=== PATIENT | female | born 1945 | race Caucasian/White ===

== ENCOUNTER 2016-05-24 15:06 | Observation (INO) | payer OTHER ==
[2016-05-24] MEDS: ERTAPENEM 1 GM in NS 100 ML IV ONE ×2 (15:15→16:29)
--- NOTE | 2016-05-24 15:47 | EDPHY ---
H & P Time Seen by Provider: 05/24/16 15:41 HPI/ROS: CHIEF COMPLAINT: Gallstone/cholecystitis. HISTORY OF PRESENT ILLNESS: This is a 71-year-old female who was seen yesterday in an outside hospital (in [facility]) for chest/abdominal pain. She had an abdominal ultrasound this morning 05/24 that showed a gallstone in the neck of the gallbladder, a thickened gallbladder wall, and an enlarged pancreatic duct. She was discharged this morning and directed to the [facility] ER for consultation by Dr. Alyssa Cohen, surgery. The severe RUQ pain began 2 days ago and has been present since then. It is worsened with eating. She admits nausea and mild fever but no vomiting. She denies other complaints at this time and her condition does not appear to be worsening since this morning. REVIEW OF SYSTEMS: A complete 10-point review of systems was performed and is negative except for those items mentioned in the HPI. Past Medical/Surgical History: Hypothyroidism, arthritis. Social History: , no recent alcohol Smoking Status: Former smoker Physical Exam: General Appearance: Alert, non-toxic appearing Eyes: Pupils equal and round, no conjunctival pallor or injection ENT, Mouth: Mucous membranes moist Neck: Normal inspection Respiratory: Lungs are clear to auscultation Cardiovascular: Regular rate and rhythm Gastrointestinal: Abdomen is soft, RUQ tenderness, no peritoneal signs Neurological: A&O, nonfocal, normal gait Skin: Warm and dry, no rash Extremities: Nontender, no pedal edema Psychiatric: Mood and affect normal Constitutional: Initial Vital Signs Temperature (C) 37.3 C 05/24/16 15:10 Heart Rate 86 05/24/16 15:10 Respiratory Rate 18 05/24/16 15:10 Blood Pressure 122/51 H 05/24/16 15:10 O2 Sat (%) 86 L 05/24/16 15:10 O2 Delivery Mode Room Air O2 (L/minute) 2 Allergies/Adverse Reactions: nickel Allergy (Intermediate, Verified 08/28/14 09:41) SWELLING, ITCHING Home Medications: Medication Instructions Recorded Atorvastatin Calcium [Lipitor 20 20 mg PO HS 08/24/14 mg (*)] Cholecalciferol Vit D3 [Vitamin D3 2,000 units PO DAILY 08/24/14 (*)] [place]-3 Fatty Acids [Fish Oil 1000 1,000 mg PO DAILY 04/17/15 mg (*)] Acetaminophen [Tylenol 325mg (*)] 325 - 650 mg PO Q6 PRN #60 tab 09/13/14 Aspirin EC [Aspirin EC 81 mg (*)] 81 mg PO DAILY 05/24/16 Docusate Sodium [Colace 100 MG (*)] 100 mg PO BID #30 cap 05/24/16 Hydrocodone/APAP 5/325 [Sarah 2 tab PO Q4HRS PRN #30 tab 05/24/16 5/325 (*)] Ibuprofen [Motrin (*)] 400 mg PO Q6HRS #30 tab 05/24/16 Medical Decision Making - Diagnostics EKG Interpretation: EKG interpreted by me reveals normal sinus rhythm, normal axis, normal intervals , ST and T segments normal. Interpretation: normal EKG ED Course/Re-evaluation: 1606: This pt presents with acute cholecystitis with an impacted gallstone in the neck of the GB. Invanz 1 gm IV, Morphine and Zofran IV given. Nu Mine better after IV meds. I consulted with Dr. Cohen, surgery. She is aware of the patient and will consult with her in the ER. The pt was taken directly to the OR. Differential Diagnosis: includes though not limited to appy, pancreatitis, SBO, diverticulitis. - Data Points Laboratory Results: Laboratory Results 05/24/16 15:43 05/24/16 15:43 Medications Given: Discontinued Medications Acetaminophen/Hydrocodone Bitart (Sarah 5/325) 2 tab PO Q4HRS PRN PRN Reason: Pain, Moderate Able to Take PO Stop: 06/03/16 18:22 Last Admin: 05/25/16 08:49 Dose: 2 tab Atorvastatin Calcium (Lipitor) 20 mg PO HS VIKKI Stop: 11/20/16 20:59 Last Admin: 05/24/16 23:05 Dose: 20 mg Cholecalciferol (Vitamin D) 2,000 units PO DAILY VIKKI Stop: 11/21/16 08:59 Last Admin: 05/25/16 09:19 Dose: 2,000 units Docusate Sodium (Colace) 100 mg PO BID VIKKI Stop: 11/20/16 20:59 Last Admin: 05/25/16 09:19 Dose: 100 mg Enoxaparin Sodium (Lovenox) 40 mg SC DAILY VIKKI Stop: 11/21/16 08:59 Last Admin: 05/25/16 09:19 Dose: 40 mg Ertapenem 1 gm/ Sodium (Chloride) 100 mls @ 200 mls/hr IV EDNOW ONE PRN Reason: Protocol Stop: 05/24/16 16:36 Last Admin: 05/24/16 15:15 Dose: 100 mls Lactated Ringer's (Lr) 1,000 mls @ 100 mls/hr IV CONT VIKKI Stop: 11/20/16 18:29 Last Admin: 05/25/16 07:15 Dose: 1,000 mls Ibuprofen (Motrin) 400 mg PO Q6HRS VIKKI Stop: 11/21/16 00:00 Last Admin: 05/25/16 05:41 Dose: 400 mg Departure - Departure Disposition: [facility] Inpatient Acute Clinical Impression: Cholecystitis Cholelithiasis Qualifiers: Qualifier Code: (K80.81) Other cholelithiasis with obstruction Condition: Fair Report Scribed for: Luz Marina Jacob Report Scribed by: Mumtza Roth Date of Report: 05/24/16 Time of Report: 15:44 Physician Review and Approval Statement: 05/24/16 15:44 Portions of this note were transcribed by a medical staff physician. I personally performed a history, physical exam, medical decision making, and confirmed accuracy of information the transcribed note.
[2016-05-24 16:06] LABS: % IMMATURE GRANULYOCYTES 0.6 % (0.0-1.1); ABSOLUTE IMMATURE GRANULOCYTES 0.08 10^3/uL (0.00-0.10); ADD DIFF? NO; ADD MORPH? NO; ADD SCAN? NO; ATYPICAL LYMPHOCYTE FLAG 0 (0-99); FRAGMENT RBC FLAG 0 (0-99); HEMOGLOBIN 12.6 g/dL (12.6-16.3); LEFT SHIFT FLG 0 (0-99); LIPEMIA HEMOLYSIS FLAG 80 (0-99); MEAN CELL HEMOGLOBIN 31.1 pg (27.9-34.1); MEAN CELL HEMOGLOBIN CONCENTR. 33.2 g/dL (32.4-36.7); MEAN CELL VOLUME 93.8 fL (81.5-99.8); MEAN PLATELET VOLUME 10.2 fL (8.7-11.7); PLATELET CLUMPS FLAG 40 (0-99); PLATELET COUNT 182 10^3/uL (150-400); RED BLOOD CELL COUNT 4.05 10^6/uL (4.18-5.33); RED CELL DISTRIBUTION WIDTH 13.6 % (11.5-15.2)
[2016-05-24 16:12] LABS: ALANINE AMINOTRANSFERASE 29 IU/L (9-52); ALBUMIN 3.9 g/dL (3.5-5.0); ALKALINE PHOSPHATASE 85 IU/L (38-126); ANION GAP 13 mEq/L (8-16); ASPARTATE AMINOTRANSFERASE 31 IU/L (14-46); BILIRUBIN,TOTAL 2.3 mg/dL (0.1-1.4); BILIRUBIN-CONJUGATED 0.3 mg/dL (0.0-0.5); CALCIUM 8.9 mg/dL (8.5-10.4); CARBON DIOXIDE 24 mEq/l (22-31); CHLORIDE 103 mEq/L (97-110); CREATININE 0.7 mg/dL (0.6-1.0); GLOMERULAR FILTRATION RATE > 60; GLUCOSE 128 mg/dL (70-100); POTASSIUM 3.7 mEq/L (3.5-5.2); SODIUM 140 mEq/L (134-144)
--- NOTE | 2016-05-24 17:00 | GHP ---
[f rep st] HISTORY AND PHYSICAL DATE OF ADMISSION: 05/24/2016 HISTORY OF PRESENT ILLNESS: The patient is a 71-year-old woman with 3 days of abdominal pain mainly in the upper quadrants and radiating to the back, accompanied by nausea. She was found on presentati on to hospital in [place] to [facility] to have an elevated white blood cell count and a CT scan which showed evidence of cholecystitis and a stone stuck in the neck of the gallbladder. She was discharged from [place] today and her step-son drove her to [facility]. On presentation to our emerge ncy department, she was noted to have a white blood cell count of 14, a conjugated bilirubin of 0.3, and normal alkaline phosphatase. PAST MEDICAL HISTORY: Hyperlipidemia, arthritis, hypothyroidism. PAST SURGICAL HISTORY: She has had a hysterectomy, tonsillectomy, and right hip replacement. MEDICATIONS: She takes Synthroid, vitamin D, Lipitor, fish oil, aspirin, and Celebrex. ALLERGIES: She is allergic wan with a contact allergy. FAMILY HISTORY: Her mother and maternal aunt required cholecystectomies. SOCIAL HISTORY: She is . She is a nonsmoker. REVIEW OF SYSTEMS: She denied chest pain, shortness of breath, blood in her stool, vomiting. She co mplained of fevers, upper abdominal pain radiating to the back, and bloating. She denied jaundice. PHYSICAL EXAMINATION: VITAL SIGNS: Temperature is 37.3, pulse 86, blood pressure 122/51, respirator y rate is 18. She is satting 95% on 2 L. GENERAL: She is alert, nonjaundiced, nontoxic-appearing. LUNGS: Clear to auscultation bilaterally. HEART: Regular rate and rhythm. ABDOMEN: Exquisitely tender in the right upper quadrant with a positive Major sign. LABORATORY DATA: Her white count again is 14, hematocrit 38, platelets 182. Conjugated bilirubin an d alkaline phosphatase are normal. ASSESSMENT AND PLAN: Cholelithiasis with acute cholecystitis. PLAN: She will be given Invanz 1 g intravenously in the emergency department and will go to surgery for laparoscopic cholecystectomy. /[id number]/MODL
[2016-05-24] MEDS ORDERED: BUPIVACAINE/EPI 0.5% 30 ML SDV ONE (17:30)
[2016-05-24] MEDS ORDERED: MIDAZOLAM 2 MG/2 ML VIAL ONE (18:12)
[2016-05-24] MEDS ORDERED: ONDANSETRON 4 MG/2 ML VIAL ONE (18:15)
[2016-05-24] MEDS ORDERED: KETOROLAC 30 MG/1 ML SDV ONE ×2 (18:15→19:14)
[2016-05-24] MEDS ORDERED: DEXAMETHASONE 4 MG/ML VIAL ONE (18:15)
[2016-05-24] MEDS ORDERED: ROCURONIUM 50 MG/5 ML VIAL ONE (18:15)
[2016-05-24] MEDS ORDERED: fentaNYL 100 MCG/2 ML INJ ONE ×2 (18:16→19:21)
[2016-05-24] MEDS ORDERED: PROPOFOL 200 MG/20 ML VIAL ONE (18:16)
[2016-05-24] MEDS ORDERED: LIDOCAINE 2% 5 ML SDV ONE (18:16)
--- NOTE | 2016-05-24 18:21 | CPEKG ---
Heart Rate: 74 RR Interval: 811 P-R Interval: 184 QRSD Interval: 94 QT Interval: 416 QTC Interval: 462 P [place]: 69 QRS [place]: 15 T Wave [place]: -4 EKG Severity - NORMAL ECG - EKG Impression: SINUS RHYTHM Electronically Signed By: Luz Marina Jacob 24-May-2016 23:34:25
[2016-05-24] MEDS ORDERED: HYDROCODONE/APAP 5/325 TAB PO PRN (18:23)
[2016-05-24] MEDS ORDERED: ONDANSETRON 4 MG/2 ML VIAL IVP PRN (18:24)
[2016-05-24] MEDS ORDERED: HYDROmorphONE/DILAUDID 1 MG/ML SYR IVP PRN (18:24)
[2016-05-24] MEDS ORDERED: epHEDrine SULFATE 10 MG/ML SYR ONE (18:30)
[2016-05-24] MEDS ORDERED: AVITENE POWDER 1 GM JAR TP ONE (19:11)
[2016-05-24] MEDS ORDERED: SUGAMMADEX SODIUM 200 MG/2 ML VIAL IVP ONE (19:15)
--- NOTE | 2016-05-24 20:07 | GOP ---
[f rep st] OPERATIVE REPORT DATE OF OPERATION: 05/24/2016 SURGEON: Alyssa Cohen MD PREOPERATIVE DIAGNOSIS: Cholelithiasis with acute cholecystitis. POSTOPERATIVE DIAGNOSIS: Cholelithiasis with acute cholecystitis. PROCEDURE PERFORMED: Laparoscopic cholecystectomy. FINDINGS: Severe inflammation of the gallbladder with a gallstone impacted in the neck of the gallbl adder. SPECIMENS: Gallbladder. ESTIMATED BLOOD LOSS: 50 mL. INDICATIONS: The patient has had upper abdominal pain for the past 3 days. She was found on present ation to a hospital in [place] to have an elevated white blood cell count and a CT scan which showed ev idence of cholecystitis with an impacted stone in the neck of the gallbladder. Her stepson drove her to [place] today where she opted for cholecystectomy. DESCRIPTION OF PROCEDURE: After informed consent was obtained and preoperative antibiotics were admi nistered, the patient was taken to the operating room, placed in a supine position. SCDs were placed to bilateral lower extremities, general anesthesia was administered, and she was prepped and draped in a sterile fashion. After an appropriate surgical pause, local anesthetic was injected just superi or to the umbilicus, and an incision was made using a #15 blade. A Veress needle was inserted into t he peritoneal cavity. After noting low entry pressures, the peritoneal cavity was insufflated to 15 mmHg and a 5 mm trocar placed. The laparoscope was inserted. A 12 mm subxiphoid port and two 5 mm r ight subcostal ports were placed under direct visualization of the laparoscope. The gallbladder was retracted cephalad. Adhesions to the omentum and duodenum were taken down using L-hook Bovie electro cautery. The gallbladder was then retracted laterally as well to reveal Calot triangle and its struc tures. The cystic artery was clipped proximally and then L-hook Bovie electrocautery was used to tra nsect it distally. The cystic duct was clipped 3 times and transected between clips using the scisso rs. Before clipping and transecting these structures, Calot triangle was fully dissected. The cysti c duct and artery were noted to be going into the gallbladder with no intervening structures. The ga llbladder was then dissected from the gallbladder fossa of the liver using L-hook Bovie electrocauter y. It was removed using an EndoCatch device and sent to Pathology. The subxiphoid incision was exte nded to allow deliverance of the large gallbladder with a very large stone in the neck. Afterward, h emostasis of the gallbladder fossa was achieved using L-hook Bovie electrocautery. The area was irri gated, suctioned, noted to be hemostatic. Vadim was placed and the area was still noted to be hemos tatic. The abdomen was then desufflated, the ports removed, and the fascia at the subxiphoid incisio n closed using 0 Vicryl suture. The skin was closed at all sites using 4-0 Monocryl suture. Mastiso l and Steri-Strips were placed. The patient was awakened from general anesthesia, extubated, and veronica en to the postanesthesia recovery unit in stable condition. /[id number]/MODL
[2016-05-24 20:16] VITALS: RESP 16
[2016-05-24] MEDS: LR 1,000 ML IV SCH (20:32)
[2016-05-24] MEDS ORDERED: ATORVASTATIN CALCIUM 20 MG TAB PO SCH (21:00)
[2016-05-24] MEDS: DOCUSATE SODIUM 100 MG CAP PO SCH (23:05)
[2016-05-24] MEDS: IBUPROFEN 200 MG TAB PO SCH (23:05)
[2016-05-25 05:17] LABS: HEMATOCRIT 29.3 % (38.0-47.0); HEMOGLOBIN 9.6 g/dL (12.6-16.3); MEAN CELL HEMOGLOBIN 30.9 pg (27.9-34.1); MEAN CELL HEMOGLOBIN CONCENTR. 32.8 g/dL (32.4-36.7); MEAN CELL VOLUME 94.2 fL (81.5-99.8); RED BLOOD CELL COUNT 3.11 10^6/uL (4.18-5.33); RED CELL DISTRIBUTION WIDTH 13.8 % (11.5-15.2)
[2016-05-25 05:39] LABS: ALBUMIN 2.9 g/dL (3.5-5.0); BILIRUBIN,TOTAL 1.1 mg/dL (0.1-1.4); BILIRUBIN-CONJUGATED 0.3 mg/dL (0.0-0.5); BILIRUBIN-UNCONJUGATED 0.8 mg/dL (0.0-1.1); TOTAL PROTEIN 5.3 g/dL (6.3-8.2)
[2016-05-25] MEDS: IBUPROFEN 200 MG TAB PO SCH (05:41)
[2016-05-25] MEDS: LR 1,000 ML IV SCH (07:15)
[2016-05-25 08:39] VITALS: BP 118/58; PULSE 56; TEMP 97.8; O2SAT 95
[2016-05-25] MEDS ORDERED: CHOLECALCIFEROL VIT D3 2,000 UNITS TAB/CAP PO SCH (09:00)
[2016-05-25] MEDS ORDERED: ENOXAPARIN 40 MG/0.4 ML SYR SC SCH (09:00)
--- NOTE | 2016-05-25 09:03 | GDS ---
[f rep st] DISCHARGE SUMMARY PREOPERATIVE DIAGNOSIS: Cholelithiasis with acute cholecystitis. POSTOPERATIVE DIAGNOSIS: Cholelithiasis with acute cholecystitis. PROCEDURE: Laparoscopic cholecystectomy. HISTORY OF PRESENT ILLNESS AND HOSPITAL COURSE: The patient is a 71-year-old woman who has had upper abdominal pain for the past 3 days, accompanied by bloating. She was found at a hospital in [place], where she was visiting her son, to have acute cholecystitis. She was treated with pain medication an d antibiotics. Her son-in-law then drove her back to [facility] for further care. O n presentation to the emergency department, she was noted to have a normal conjugated bilirubin and a lkaline phosphatase. Ultrasound report from [place] showed a large gallstone stuck within the neck of the gallbladder and gallbladder wall thickening consistent with acute cholecystitis. She opted for l aparoscopic cholecystectomy. Intraoperatively, she was found to have a very inflamed gallbladder with a large gallstone impacted w ithin the neck. She underwent laparoscopic cholecystectomy. Postoperatively, she was started on a diet and analgesia. Currently, her pain has improved and seems to be controlled with pain medication. If she tolerates a diet this morning, she will be discharged home with instructions to follow up with Dr. Cohen in 1-2 weeks. DISCHARGE MEDICATIONS: [place] 5/325 mg 1-2 tablets q.4 hours p.r.n. pain, Colace 100 mg p.o. twice da jc, ibuprofen 400 mg 4 times daily. /[id number]/MODL
[2016-05-25] MEDS: DOCUSATE SODIUM 100 MG CAP PO SCH (09:19)
== END 2016-05-25 11:35 | disposition home or self-care (01) ==
LOC: F3N 20:10
PROVIDERS: ADMIT Surgery; ATTEND Surgery
PROC: 0FT44ZZ Resection of Gallbladder, Percutaneous Endoscopic Approach (ICD-10-PCS; principal; 2016-05-24 18:17)
DX: K80.01 Calculus of gallbladder with acute cholecystitis with obstruction (principal); E03.9 Hypothyroidism, unspecified; E78.5 Hyperlipidemia, unspecified
CPT/HCPCS: 47562; 88304; 93005; G0378; J1100; J1335; J1650; J1885; J2250; J2405; J2704; J3010; 96365

== ENCOUNTER → 2016-08-04 | Outpatient (CLI) | payer OTHER | LOC: FIMAGING 12:40 | PROVIDERS: ATTEND Internal Medicine | DX: R91.1 Solitary pulmonary nodule (principal) ==

== ENCOUNTER → 2017-03-09 | Outpatient (CLI) | payer OTHER | LOC: FIMAGING 11:34 | PROVIDERS: ATTEND Internal Medicine | DX: Z12.31 Encounter for screening mammogram for malignant neoplasm of breast (principal) | CPT/HCPCS: G0202 ==

== ENCOUNTER → 2017-04-27 | Outpatient (CLI) | payer OTHER | LOC: FIMAGING 15:16 | PROVIDERS: ATTEND Physician Assistant Medical | DX: M50.30 Other cervical disc degeneration, unspecified cervical region (principal); M12.88 Other specific arthropathies, not elsewhere classified, other specified site; M99.71 Connective tissue and disc stenosis of intervertebral foramina of cervical region ==

== ENCOUNTER → 2017-06-18 | Outpatient (CLI) | payer OTHER | LOC: FIMAGING 12:53 | PROVIDERS: ATTEND Internal Medicine | DX: R91.1 Solitary pulmonary nodule (principal); I77.810 Thoracic aortic ectasia ==

== ENCOUNTER 2018-02-16 13:36 | Emergency (ER) | payer OTHER ==
[2018-02-16] MEDS ORDERED: NS 1,000 ML IV ONE (14:07)
--- NOTE | 2018-02-16 14:07 | EDPHY ---
H & P Time Seen by Provider: 02/16/18 13:53 HPI/ROS: CHIEF COMPLAINT: Back and abdominal pain HISTORY OF PRESENT ILLNESS: Return from [place] last week on Wednesday. On Wednesday 4 days ago started having back pain which is also associated with abdominal pain and bloating. Worse with movement. Not associated with urinary symptoms vomiting or diarrhea or fever. She has felt bloated more constipated over the last 3 days. Symptoms definitely worse with walking. No injury or trauma. No weakness or numbness in feet or incontinence. REVIEW OF SYSTEMS: Eye: no change in vision ENT: no sore throat Cardiac: no chest pain or syncope Pulmonary: no cough or SOB Abdomen: HPI Musculoskeletal: HPI Skin: no rash Neuro: no headache Constitutional: no fever : no urinary symptoms A comprehensive 10 point review of systems is otherwise negative aside from elements mentioned in the history of present illness. PAST MEDICAL HISTORY: Includes hip replacement, atrial fibrillation, hypothyroid, hysterectomy, cholecystectomy. Social history: Recent travel to [place] General Appearance: Alert and conversant, cooperative. Eyes: No scleral icterus. ENT, Mouth: Normal mucous membranes. Respiratory: Normal respiratory effort, breath sounds equal, lungs are clear to auscultation. Cardiovascular: Regular rate and rhythm. Gastrointestinal: Right lower quadrant abdominal tenderness, no pulsatile mass. No rebound or guarding. No peritoneal signs. Neurological: Alert, face symmetric, normal motor and sensory in extremities. No clonus. Ambulatory. Skin: Warm and dry, no rashes. Musculoskeletal: No midline spinal or paraspinal tenderness. Psychiatric: Not agitated. Emergency Department course/MDM: Declined pain medication. Plan for CT scanning abdomen and pelvis to look at her lumbar spine as well as her appendix and right colon with abdominal tenderness. 1545: CT scan per Dr. Rhodes shows constipation with stool, multilevel spinal stenosis, otherwise negative. No evidence of appendicitis. Results discussed with the patient, symptomatic treatment for back pain, she has a known history of spinal stenosis. She does not have distal neurologic symptoms. Symptomatic treatment for constipation. Smoking Status: Former smoker Constitutional: Initial Vital Signs Temperature (C) 36.7 C 02/16/18 13:39 Heart Rate 74 02/16/18 13:39 Respiratory Rate 18 02/16/18 13:39 Blood Pressure 208/102 H 02/16/18 13:39 O2 Sat (%) 95 02/16/18 13:39 O2 Delivery Mode Room Air Allergies/Adverse Reactions: nickel Allergy (Intermediate, Verified 08/28/14 09:41) SWELLING, ITCHING Home Medications: Medication Instructions Recorded Atorvastatin Calcium [Lipitor 20 20 mg PO HS 08/24/14 mg (*)] Cholecalciferol Vit D3 [Vitamin D3 2,000 units PO DAILY 08/24/14 (*)] [place]-3 Fatty Acids [Fish Oil 1000 1,000 mg PO DAILY 08/24/14 mg (*)] Acetaminophen [Tylenol 325mg (*)] 325 - 650 mg PO Q6 PRN #60 tab 09/13/14 Aspirin EC [Aspirin EC 81 mg (*)] 81 mg PO DAILY 05/24/16 Docusate Sodium [Colace 100 MG (*)] 100 mg PO BID #30 cap 05/24/16 Hydrocodone/APAP 5/325 [[place] 2 tab PO Q4HRS PRN #30 tab 05/24/16 5/325 (*)] Ibuprofen [Motrin (*)] 400 mg PO Q6HRS #30 tab 05/24/16 Lidocaine [Lidoderm] 1 each TP AD PRN #7 adh..patch 02/16/18 Medical Decision Making - Diagnostics Imaging Results: Imaging Impressions Abdomen CT 02/16/18 14:38 Impression: 1. Multilevel moderate to severe central canal stenosis, secondary to degenerative disk disease and facet arthropathy at L2-L3, L3-L4 and L4-L5 levels. 2. Constipation without bowel obstruction or dilation. 3. Atherosclerotic aorta without aneurysm. 4. Sigmoid diverticulosis without diverticulitis, abscess or focal fluid collection. Findings and recommendations discussed with Emergency Department physician, Dr. Biju Gamino at 1545 hours on February 16, 2018. Final report concurs with initial preliminary interpretation. Imaging: Discussed imaging studies w/ call center dispatcher Radiologist Differential Diagnosis: Differential diagnosis considered for abdominal pain including but not limited to appendicitis, bowel obstruction, intestinal perforation, diverticulitis. - Data Points Laboratory Results: Laboratory Results 02/16/18 14:14 02/16/18 14:14 02/16/18 02/16/18 02/16/18 14:44 14:17 14:14 WBC RBC Hgb POC Hgb 12.6 gm/dL gm/dL (12.6-16.3) Hct POC Hct 37 % L % (38-47) MCV MCH MCHC RDW Plt Count MPV Neut % (Auto) Lymph % (Auto) [place] % (Auto) Eos % (Auto) Baso % (Auto) Nucleat RBC Rel Count Absolute Neuts (auto) Absolute Lymphs (auto) Absolute Monos (auto) Absolute Eos (auto) Absolute Basos (auto) Absolute Nucleated RBC Immature Gran % Immature Gran # POC Sodium 141 mEq/L mEq/L (135-145) Sodium 138 mEq/L mEq/L (135-145) POC Potassium 3.4 mEq/L mEq/L (3.3-5.0) Potassium 3.6 mEq/L mEq/L (3.3-5.0) POC Chloride 104 mEq/L mEq/L (97-110) Chloride 104 mEq/L mEq/L (97-110) Carbon Dioxide 27 mEq/l mEq/l (22-31) Anion Gap 7 mEq/L L mEq/L (8-16) POC BUN 10 mg/dL mg/dL (7-23) BUN 12 mg/dL mg/dL (7-23) Creatinine 0.7 mg/dL mg/dL (0.6-1.0) POC Creatinine 0.7 mg/dL mg/dL (0.6-1.0) Estimated GFR > 60 Glucose 92 mg/dL mg/dL (70-100) POC Glucose 92 mg/dL mg/dL (70-100) Calcium 9.5 mg/dL mg/dL (8.5-10.4) Urine Color YELLOW Urine Appearance CLEAR Urine pH 6.0 (5.0-7.5) Ur Specific [place] 1.008 (1.002-1.030) Urine Protein NEGATIVE (NEGATIVE) Urine Ketones TRACE H (NEGATIVE) Urine Blood NEGATIVE (NEGATIVE) Urine Nitrate NEGATIVE (NEGATIVE) Urine Bilirubin NEGATIVE (NEGATIVE) Urine Urobilinogen NEGATIVE EU EU (0.2-1.0) Ur Leukocyte Esterase NEGATIVE (NEGATIVE) Urine Glucose NEGATIVE (NEGATIVE) 02/16/18 14:14 WBC 7.49 10^3/uL 10^3/uL (3.80-9.50) RBC 4.02 10^6/uL L 10^6/uL (4.18-5.33) Hgb 12.5 g/dL L g/dL (12.6-16.3) POC Hgb Hct 36.8 % L % (38.0-47.0) POC Hct MCV 91.5 fL fL (81.5-99.8) MCH 31.1 pg pg (27.9-34.1) MCHC 34.0 g/dL g/dL (32.4-36.7) RDW 13.0 % % (11.5-15.2) Plt Count 160 10^3/uL 10^3/uL (150-400) MPV 10.1 fL fL (8.7-11.7) Neut % (Auto) 68.7 % % (39.3-74.2) Lymph % (Auto) 22.4 % % (15.0-45.0) [place] % (Auto) 6.3 % % (4.5-13.0) Eos % (Auto) 1.5 % % (0.6-7.6) Baso % (Auto) 0.8 % % (0.3-1.7) Nucleat RBC Rel Count 0.0 % % (0.0-0.2) Absolute Neuts (auto) 5.15 10^3/uL 10^3/uL (1.70-6.50) Absolute Lymphs (auto) 1.68 10^3/uL 10^3/uL (1.00-3.00) Absolute Monos (auto) 0.47 10^3/uL 10^3/uL (0.30-0.80) Absolute Eos (auto) 0.11 10^3/uL 10^3/uL (0.03-0.40) Absolute Basos (auto) 0.06 10^3/uL 10^3/uL (0.02-0.10) Absolute Nucleated RBC 0.00 10^3/uL 10^3/uL (0-0.01) Immature Gran % 0.3 % % (0.0-1.1) Immature Gran # 0.02 10^3/uL 10^3/uL (0.00-0.10) POC Sodium Sodium POC Potassium Potassium POC Chloride Chloride Carbon Dioxide Anion Gap POC BUN BUN Creatinine POC Creatinine Estimated GFR Glucose POC Glucose Calcium Urine Color Urine Appearance Urine pH Ur Specific [place] Urine Protein Urine Ketones Urine Blood Urine Nitrate Urine Bilirubin Urine Urobilinogen Ur Leukocyte Esterase Urine Glucose Medications Given: Discontinued Medications Sodium Chloride (Ns) 1,000 mls @ 0 mls/hr IV EDNOW ONE; Wide Open PRN Reason: Protocol Stop: 02/16/18 14:08 Last Admin: 02/16/18 14:16 Dose: 1,000 mls Point of Care Test Results: Chemistry 02/16/18 14:17 POC Sodium 141 mEq/L mEq/L (135-145) POC Potassium 3.4 mEq/L mEq/L (3.3-5.0) POC Chloride 104 mEq/L mEq/L (97-110) POC BUN 10 mg/dL mg/dL (7-23) POC Creatinine 0.7 mg/dL mg/dL (0.6-1.0) POC Glucose 92 mg/dL mg/dL (70-100) ISTAT H&H 02/16/18 14:17 POC Hgb 12.6 gm/dL gm/dL (12.6-16.3) POC Hct 37 % L % (38-47) Departure - Departure Disposition: Home, Routine, Self-Care Clinical Impression: Spinal stenosis of lumbar region Qualifiers: Neurogenic claudication status: without neurogenic claudication Qualified Code( s): M48.061 - Spinal stenosis, lumbar region without neurogenic claudication Constipation Qualifiers: Constipation type: unspecified constipation type Qualified Code(s): K59.00 - Constipation, unspecified Abdominal pain Qualifiers: Abdominal location: generalized Qualified Code(s): R10.84 - Generalized abdominal pain Condition: Good Instructions: Constipation (ED), Lumbar Spinal Stenosis (ED), Acute Abdominal Pain (ED) Referrals: Radha Montana MD [Primary Care Provider] - As per Instructions Prescriptions: Lidocaine [Lidoderm] 1 each TP AD PRN #7 adh..patch PRN Reason: back pain
[2018-02-16 14:27] LABS: PLATELET COUNT 160 10^3/uL (150-400)
[2018-02-16] MEDS ORDERED: IOPAMIDOL (ISOVUE-300) 100 ML BTL ONE (14:40)
[2018-02-16 16:01] VITALS: BP 180/78
== END 2018-02-16 16:01 | disposition home or self-care (01) ==
DX: K59.00 Constipation, unspecified (principal); M48.061 Spinal stenosis, lumbar region without neurogenic claudication; I48.91 Unspecified atrial fibrillation; E03.9 Hypothyroidism, unspecified; E86.9 Volume depletion, unspecified; M51.36 Other intervertebral disc degeneration, lumbar region; I70.0 Atherosclerosis of aorta; K57.30 Diverticulosis of large intestine without perforation or abscess without bleeding
CPT/HCPCS: 74177; 96360; 99285; Q9967; 82435-PO; 82565-PO; 82947-PO; 84132-PO; 84295-PO; 84520-PO; 85014-PO

== ENCOUNTER → 2018-06-16 | Outpatient (CLI) | payer OTHER | LOC: FIMAGING 11:31 | PROVIDERS: ATTEND Internal Medicine | DX: Z12.31 Encounter for screening mammogram for malignant neoplasm of breast (principal) ==

== ENCOUNTER → 2018-07-18 | Outpatient (CLI) | payer OTHER ==
[~2018-07-18] MED LIST: IOPAMIDOL (ISOVUE 370) 100 ML BTL IV ONE
== END ==
LOC: FIMAGING 13:42
PROVIDERS: ATTEND Internal Medicine Cardiovascular Disease
DX: I51.7 Cardiomegaly (principal); R91.1 Solitary pulmonary nodule; I48.91 Unspecified atrial fibrillation
CPT/HCPCS: 75572; Q9967

== ENCOUNTER 2018-07-26 06:50 | Observation (INO) | payer OTHER ==
[2018-07-26] MEDS ORDERED: NS 1,000 ML IV ONE (06:52)
[2018-07-26 07:43] LABS: PLATELET COUNT 170 10^3/uL (150-400)
[2018-07-26 07:52] LABS: INR 0.95 (0.83-1.16); PROTIME(PATIENT) 12.3 SEC (12.0-15.0)
[2018-07-26] MEDS ORDERED: SUGAMMADEX SODIUM 200 MG/2 ML VIAL IVP ONE (07:57)
[2018-07-26] MEDS ORDERED: ROCURONIUM 100 MG/10 ML VIAL ONE (07:57)
[2018-07-26] MEDS ORDERED: fentaNYL 100 MCG/2 ML INJ ONE (07:57)
[2018-07-26] MEDS ORDERED: ONDANSETRON 4 MG/2 ML VIAL ONE (07:57)
[2018-07-26] MEDS ORDERED: DEXAMETHASONE 4 MG/ML VIAL ONE (07:57)
[2018-07-26] MEDS ORDERED: PROPOFOL 200 MG/20 ML VIAL ONE ×2 (07:57→10:47)
[2018-07-26] MEDS ORDERED: HEPARIN/DEXTROSE 25,000 UNIT/500 ML BAG ONE (07:59)
[2018-07-26] MEDS ORDERED: LIDOCAINE 1% 300 MG/30 ML SDV ONE (07:59)
[2018-07-26] MEDS ORDERED: HEPARIN 10,000 UNIT/10 ML MDV (1,000 UNIT/ML) ONE (07:59)
[2018-07-26] MEDS ORDERED: BUPIVACAINE 0.75% 10 ML SDV ONE (08:00)
[2018-07-26] MEDS ORDERED: IOPAMIDOL (ISOVUE-300) 100 ML BTL ONE (08:00)
--- NOTE | 2018-07-26 08:17 | PDGENHP ---
History & Physical Chief Complaint: Paroxysmal atrial fibrillation History of Present Illness: Symptomatic paroxysmal atrial fibrillation requiring several recent cardioversions. She is anticoagulated with Eliquis Relevant Physical Exam: General: A&Ox4, no apparent distress. Respiratory: CTA. Cardiac: Regular rate and rhythm, S1, S2. Extremities: Pulses 2+ bilaterally, no edema Cardiorespiratory Assessment: Proceed with CB PVI as planned for today.
--- NOTE | 2018-07-26 08:18 | POSTANESTH ---
Post Anesthetic Evaluation Cardiovascular Status: Normal, Stable Respiratory Status: Normal, Stable Level of Consciousness/Mental Status: Can Participate in Eval Pain Control: Adequate, Prn Tx Ordered Nausea/Vomiting Control: Adequate, Prn Tx Ordered Complications Possibly Related to Anesthesia: None Noted
--- NOTE | 2018-07-26 08:18 | PDANEPAE ---
ANE Past Medical History - Cardiovascular History Hx Hypertension: No Hx Arrhythmias: No Hx Chest Pain: No Hx Coronary Artery / Peripheral Vascular Disease: No Hx CHF / Valvular Disease: No Hx Palpitations: No Cardiovascular History Comment: HIGH CHOL. BORDERLINE BP, OCC ELEVATED AT DRS OFFICE - Pulmonary History Hx COPD: No Hx Asthma/Reactive Airway Disease: No Hx Recent Upper Respiratory Infection: No Hx Oxygen in Use at Home: No Hx Sleep Apnea: No Pulmonary History Comment: POSS ENVIRONMENTAL ALLERGIES- BEING EVALUATED NOW - Neurologic History Hx Cerebrovascular Accident: No Hx Seizures: No Hx Dementia: No - Endocrine History Hx Diabetes: No Endocrine History Comment: LOW THYROID - Renal History Hx Renal Disorders: Yes Renal History Comment: RECENT UTI, TX W ANTIBX - Liver History Hx Hepatic Disorders: No - Neurological & Psychiatric Hx Hx Neurological and Psychiatric Disorders: No - Cancer History Hx Cancer: No - Congenital Disorder History Hx Congenital Disorders: No - GI History Hx Gastrointestinal Disorders: No - Other Health History Other Health History: OA ANTONY HIPS, NECK. CATARACTS FORMING, R IS WORSE. HX HYST FOR FIBROIDS. HX ANEMIA, DIET CHANGE NOW RESOLVED - Chronic Pain History Chronic Pain: Yes (HIPS AND NECK) - Surgical History Prior Surgeries: HYST,BSO- AGE 49. TONSIL. BREAST AUGMENTATION ANE Review of Systems Review of Systems: ANE Patient History - Allergies Allergies/Adverse Reactions: No Known Allergies Allergy (Verified 07/19/18 11:52) - Home Medications Home Medications: Apixaban [Eliquis] 5 mg PO BID 07/19/18 [Last Taken Unknown] Atorvastatin Calcium [Lipitor 20 mg (*)] 20 mg PO DAILY 07/19/18 [Last Taken Unknown] Cholecalciferol Vit D3 [Vitamin D3 2000 units tab (OTC)] 2,000 units PO DAILY [Last Taken Unknown] Diltiazem HCl [Cartia Xt] 120 mg PO DAILY 07/19/18 [Last Taken Unknown] LORazepam [Ativan (*)] 0.5 mg PO DAILY PRN 07/19/18 [Last Taken Unknown] Losartan Potassium [Cozaar 50 mg (*)] 50 mg PO DAILY 07/19/18 [Last Taken Unknown] Greenleaf-3 Fatty Acids [Fish Oil 1000 mg (*)] 2,000 mg PO DAILY 07/19/18 [Last Taken Unknown] Omeprazole 20 mg PO DAILY 07/19/18 [Last Taken Unknown] Sertraline HCl [Zoloft 25mg (*)] 25 mg PO DAILY 07/19/18 [Last Taken Unknown] Zolpidem Tartrate [Ambien 5MG (*)] 5 mg PO HS PRN 07/19/18 [Last Taken Unknown] - Smoking Hx Smoking Status: Former smoker - Family Anes Hx Family Hx Anesthesia Complications: NONE ANE Labs/Vital Signs - Labs Result Diagrams: 07/26/18 07:05 07/26/18 07:05 - Vital Signs Height: 170 cm Weight: 62.1 kg ANE Physical Exam - Airway Neck exam: FROM Mallampati Score: Class 2 Mouth exam: normal dental/mouth exam - Pulmonary Pulmonary: no respiratory distress, no rales or rhonchi, clear to auscultation - Cardiovascular Cardiovascular: no murmur, rub, or gallop, irregularly irregular - ASA Status ASA Status: II ANE Anesthesia Plan Anesthesia Plan: general endotracheal anesthesia
[2018-07-26] MEDS ORDERED: PHENYLEPHRINE HCL 100 MCG/ML SYR ONE (09:12)
[2018-07-26] MEDS ORDERED: ePHEDrine SULFATE 25 MG/5 ML SYR ONE (09:12)
[2018-07-26] MEDS ORDERED: ROCURONIUM 50 MG/5 ML VIAL ONE (10:47)
[2018-07-26] MEDS ORDERED: PROTAMINE SULFATE 50 MG/5 ML VIAL IVP ONE (10:48)
[2018-07-26] MEDS ORDERED: LORazepam 0.5 MG TAB PO PRN (11:10)
[2018-07-26] MEDS ORDERED: ZOLPIDEM TARTRATE 5 MG TAB PO PRN (11:10)
--- NOTE | 2018-07-26 11:10 | EPPROC ---
Electrophysiology Procedure Note: ELECTROPHYSIOLOGIC STUDY AND CATHETER MEDIATED CRYO ABLATION FOR PAROXYSMAL ATRIAL FIBRILLATION Procedures performed: 56126-18 EP evaluation with RA/RV/LA pace/record, with arrhythmia induction 70132-18 EP evaluation with RA/RV pace record, insert/reposition catheter, with arrhythmia induction 21543 Atrial fibrillation ablation 56148 3D mapping Intracardiac echocardiogram Transseptal puncture Fluoroscopy PROCEDURE: The patient arrived in the Electrophysiology Laboratory in the fasting state. The right groin, left groin and right infraclavicular area were prepped and draped in the usual sterile fashion. Anesthesiologist administered general anesthesia Dr. Adams . All catheters were placed percutaneously using the Seldinger technique and advanced into position under fluoroscopic guidance. One #7 [place] deflectable octapolar electrode catheter was placed in the His-bundle position via the left femoral vein (2mm spacing, IVC electrode for unipolar recordings). This catheter was placed in the coronary sinus after transseptal puncture and later placed in the SVC-R subclavian vein junction to pace the right phrenic nerve during right pulmonary vein ablation. One #8 [place] AcuNaV ultrasound catheter was placed in the left femoral vein and advanced into the right atrium. Programmed stimulation was performed from the right atrium, left atrium (CS) and right ventricle. There was no evidence of AV accessory pathway. Intracardiac echo evaluation of the left atrium and pulmonary veins was performed. Baseline ACT was drawn and heparin bolus was administered and heparin drip was started prior to transseptal puncture. ACT was checked every 15 minutes and maintained in the range of 350-400 seconds. One 14Fr short sheath was placed in the right femoral vein. One 8Fr SL1 sheath was advanced into the right atrium via the 14Fr short sheath. Transseptal puncture was performed under intracardiac ultrasound, fluoroscopic and hemodynamic guidance placing the sheath into the left atrium. [employer] RF needle ( C0 curve) was used. The mean left atrial pressure was 17 mmHg. The SL1 sheath was exchanged for a [employer] Flex[employer]ath sheath using an Amplatz stiff guide wire. A 28 mm Cryoballoon catheter with a 20 mm Achieve catheter was placed via the sheath into the left atrium. Intracardiac ultrasound and PV angiograms were used to assist in placing the mapping catheter at the antrum of the pulmonary veins. All pulmonary veins were isolated successfully using cryoballoon ablation using freeze/thaw/freeze cycles at 2-3-minute intervals, with good [id number] of isolation. Coumadin ridge/Ligament of [place] region was ablated. Pre and post pulmonary vein recordings were measured on the spiral Achieve catheter to ensure complete pulmonary vein isolation. During the right-sided ablation, phrenic nerve pacing was performed to assess the phrenic nerve strength ( manually and with ICE visualization of liver movement during phrenic capture) and the phrenic nerve was intact throughout the right-sided ablation and at the end of the procedure. LIPV ablation limited to 100 s due to esophageal temperature fall. An esophageal temperature probe (12 electrode, Circa) was placed by the anesthesiologist at the beginning of the procedure. Esophageal temperature was monitored continuously and cryoablation was interrupted if esophageal temperature was <15 C. Cryoapplications 8 total cryoablation time 1025s ICE imaging post ablation was consistent with pre ablation imaging with no changes noted, moreover there was no left atrial/left ventricular thrombus and no pericardial effusion. The catheters were withdrawn. Protamine was given. Venous vascular access sheaths were removed in the EP lab after placing subcutaneous pursestring suture. The patient was recovered from anesthesia. There were no complications. The patient was arousable and moving all four extremities at the end of the procedure. CONCLUSIONS: 1. Paroxysmal atrial fibrillation. 2. Successful pulmonary vein isolation procedure (left and right pulmonary vein antrum) using cryoballoon ablation. 3. No apparent complications. Patient Problems: Problems Problem Status Onset Osteoarthritis of hip Acute Cholecystitis Acute Cholelithiasis Acute
[2018-07-26] MEDS ORDERED: KETOROLAC 15 MG/1 ML SDV IVP ONE (12:19)
--- NOTE | 2018-07-26 12:52 | CPEKG ---
Test Reason : OPEN Blood Pressure : / mmHG Vent. Rate : 057 BPM Atrial Rate : 057 BPM P-R Int : 193 ms QRS Dur : 104 ms QT Int : 446 ms P-R-T Axes : 075 022 049 degrees QTc Int : 435 ms Sinus rhythm Probable left ventricular hypertrophy Confirmed by Grey Solis ([id number]) on 07/26/2018 12:52:37 PM Referred By: Sumeet Simmons Confirmed By:Grey Solis
[2018-07-26] MEDS: NEOSPORIN OPHT OINT 3.5GM EACHEYE SCH ×3 (15:11→21:56)
[2018-07-26] MEDS: APIXABAN 5 MG TAB PO SCH (17:50)
[2018-07-27] MEDS: NEOSPORIN OPHT OINT 3.5GM EACHEYE SCH ×3 (03:28→09:08)
[2018-07-27 06:56] LABS: PLATELET COUNT 164 10^3/uL (150-400)
[2018-07-27] MEDS ORDERED: PROTOCOL POTASSIUM 1 DOSE MISC PRN (07:57)
[2018-07-27] MEDS ORDERED: POTASSIUM CL 10 MEQ TAB PO ONE (08:08)
[2018-07-27] MEDS ORDERED: POTASSIUM CL 20 MEQ TAB PO ONE ×2 (08:30→08:45)
[2018-07-27] MEDS: APIXABAN 5 MG TAB PO SCH (08:34)
[2018-07-27] MEDS ORDERED: PANTOPRAZOLE SODIUM 40 MG TAB PO SCH (09:00)
[2018-07-27] MEDS ORDERED: DILTIAZEM CD 120 MG CAP PO SCH (09:00)
[2018-07-27] MEDS ORDERED: LOSARTAN POTASSIUM 50 MG TAB PO SCH (09:00)
[2018-07-27] MEDS ORDERED: ATORVASTATIN CALCIUM 20 MG TAB PO SCH (09:00)
[2018-07-27] MEDS ORDERED: OMEGA-3 FATTY ACIDS 1,000 MG CAP PO SCH (09:00)
[2018-07-27] MEDS ORDERED: CHOLECALCIFEROL VIT D3 2,000 UNITS TAB/CAP PO SCH (09:00)
[2018-07-27] MEDS ORDERED: SERTRALINE HCL 25 MG TAB PO SCH (09:00)
[2018-07-27 10:32] VITALS: BP 116/64
--- NOTE | 2018-07-27 11:19 | CPEKG ---
Test Reason : OPEN Blood Pressure : / mmHG Vent. Rate : 070 BPM Atrial Rate : 070 BPM P-R Int : 188 ms QRS Dur : 104 ms QT Int : 504 ms P-R-T Axes : 062 036 072 degrees QTc Int : 544 ms Sinus rhythm Confirmed by Shawn Dangelo ([id number]) on 07/27/2018 11:18:21 AM Referred By: Sumeet Simmons Confirmed By:Shawn Dangelo
--- NOTE | 2018-07-27 11:24 | CPEKG ---
Test Reason : OPEN Blood Pressure : / mmHG Vent. Rate : 065 BPM Atrial Rate : 065 BPM P-R Int : 208 ms QRS Dur : 102 ms QT Int : 498 ms P-R-T Axes : 077 042 051 degrees QTc Int : 518 ms Sinus rhythm Confirmed by Shawn Dangelo ([id number]) on 07/27/2018 11:23:56 AM Referred By: Sumeet Simmons Confirmed By:Shawn Dangelo
--- NOTE | 2018-07-27 11:29 | ASDISCHSUM ---
Discharge Information Plan Status:Home with No Needs Medically Cleared to Leave: Discharge Date: CM D/C Disposition:Home, Routine, Self-Care ADT D/C Disposition:Home, Routine, Self-Care Projected Discharge Date: Transportation at D/C:Family Discharge Delay Reason: Follow-Up Date: Discharge Slot: Final Diagnosis: Placement Information Patient Contact Information Contact Name:MENA Relationship:Daughter Address:[address] [place] Alternate Phone: State/Zip Code:[place] [address] Email: Financial Information Financial Class:Medicare Primary Plan Desc:MEDICARE OUTPATIENT Primary Plan Number:[id number] Secondary Plan Desc:CORTNEY Secondary Plan Number:[id number] Assessment Information LACE LACE Length of stay for Answers: 1 day current admission Acuity / Level of Answers: No Care: Did the patient have an inpatient admission? Comorbidities - select Answers: Opioid dependence all that apply / Chronic pain Other Notes: AFib; Hypothyroid # of Emergency department Answers: 1-2 visits in the last 6 months Score: 7 Date Signed: 07/27/2018 11:28 AM Electronically Signed By:ALICIA Cole Case Management Discharge Plan Note Case Management Discharge Discharge Order Complete? Answers: Yes Patient to Obtain Answers: via Family Medications Transportation Arranged Answers: Family/Friends Discharge Comments Notes: Pt is 73 yo F underwent ablation. Pt is being discharged independently. No CM needs identified. Family to transport. Date Signed: 07/27/2018 11:26 AM Electronically Signed By:ALICIA Cole Intervention Information Intervention Type:*DELGADO-Signed Date of Service:07/27/2018 11:12 AM Patient Type:Observation Staff Member:Mary Rubio Hours: Discipline: Severity: Comment:
--- NOTE | 2018-07-27 12:25 | GDS ---
[f rep st] DISCHARGE SUMMARY SUPERVISING BUSINESS TRANSFORMATION MANAGER: Sumeet Simmons MD. ADMISSION DIAGNOSIS: Paroxysmal atrial fibrillation. DISCHARGE DIAGNOSIS: Paroxysmal atrial fibrillation status post cryoballoon pulmonary vein isolation PROCEDURES PERFORMED DURING HOSPITALIZATION: 1. Electrocardiogram. 2. Echocardiogram. 3. Electrophysiology study. 4. Cryoballoon pulmonary vein isolation. HOSPITAL COURSE: Patient presented 07/26/2018 for atrial fibrillation ablation in the setting of increasingly frequent and symptomatic episodes of paroxysmal atrial fibrillation. She underwent successful catheter-mediated cryoballoon ablation for atrial fibrillation with successful pulmonary vein isolation with Dr. Sumeet Simmons without any intraprocedure complications. She has done very well in the postprocedure setting, and she is appropriate and stable for discharge home today. CURRENT PHYSICAL EXAMINATION: GENERAL: Alert and oriented x4. No apparent distress. VITAL SIGNS: Blood pressure 116/64, heart rate 70, respiratory rate 22, SpO2 of 93% on room air, temp 36.4 degrees Celsius. RESPIRATORY: Lungs are clear to auscultation without adventitious breath sounds. CARDIAC: Normal S1 and S2. No S3 or S4. Rhythm is regular. ABDOMEN: Normoactive bowel sounds times all 4 quadrants. No masses or tenderness. Soft to palpation. SKIN: [place], warm, dry without cyanosis, clubbing, or peripheral edema. EXTREMITIES: Bilateral pursestring sutures removed intact without evidence of hematoma, redness, oozing, swelling, or warmth. Mild ecchymosis to the left groin site. Pulses 2+ bilaterally. No edema. LABORATORY STUDIES: Drawn today. CBC and BMP are relatively stable compared to preprocedure. Troponin 9.070; elevated troponin is to be expected in the postprocedure setting. PROCEDURES: Electrophysiology study and atrial fibrillation ablation as mentioned above. Echocardiogram this morning demonstrates stable systolic function without new wall motion abnormalities or evidence of pericardial effusion. Electrocardiogram this morning demonstrates normal sinus rhythm with a normal MT interval and without new ST-T wave abnormalities. DISCHARGE DISPOSITION: Patient will be discharged home in stable condition. She is under activity restrictions as below. DISCHARGE MEDICATIONS: Please see discharge medication reconciliation sheet for full details. Please note that patient will continue GI prophylaxis with her antacid for at least 6 weeks. She will also continue her Eliquis 5 mg twice daily for at least 3 months, although lifelong oral anticoagulation is recommended. She understands that she may not hold this medication for any reason within the next 3 months without clearing this with the electrophysiology team. DISCHARGE INSTRUCTIONS: Post-atrial fibrillation ablation instructions reviewed with patient in detail. 1. We discussed activity restrictions including lifting no more than 10 pounds and avoidance of submerged bathing for 10 days. 2. She will get up and walk around every 45 minutes for 45 days. 3. She will avoid unpressurized air travel or scuba diving for the next 6 months and will present to our clinic for an echocardiogram prior to engaging in either of these activities. 4. We also reviewed bleeding precautions, medication compliance, and monitoring for signs or symptoms of infection, atrioesophageal fistula, or sustained arrhythmias. At the time of discharge, patient verbalizes understanding of all discharge instructions without questions or concerns. She has a followup visit scheduled in August and will contact [facility] with any new or concerning symptoms prior to this upcoming visit. Time spent on discharge greater than 30 minutes. /[id number]/MODL MTDD
--- NOTE | 2018-07-27 12:58 | ECHO ---
[email or web address] [address] [address] Main: [phone] Echocardiography Examination Transthoracic Name: BLAKE MIN MR#: [id number] Study Date: 07/27/2018 Study Time: 07:39 AM Date of : 1945 Age: 73 year(s) Height: 167.6 cm (66 in.) Weight: 61.69 kg (136 lb.) BSA: 1.7 m2 Gender: Female Examination: Echo Contrast: Image Quality: Adequate Rhythm: Heart Rate: BP: 137 mmHg/65 mmHg Indication: F/U Post EP Study Procedure Staff Referring Physician: Blogs Manager: Serene Escobedo [facility] Reading Physician: Cory Jordan MD Requesting Provider: Ordering Physician: Sumeet Simmons MD Indication: F/U Post EP Study Measurements Chambers AV/MV Label Value Normal Value Label Value Normal Value IVSd, 2D 1 cm (0.6cm - 1.1cm) AR PHT 0.46 s LVDd, 2D 5.2 cm (3.9cm - 5.3cm) AR PHT 459 ms LVDs, 2D 3.4 cm (2.1cm - 4cm) AR Vmax 4.92 m/s LVEF, 2D 63 % (54% - 74%) AV PGmax 7 mmHg LVEF, BP 65 % (55% - 70%) AV PGmean 5 mmHg LVEF, MOD2 63 % (55% - 70%) AV Vmax 1.35 m/s LVEF, MOD4 64 % (55% - 70%) ELBA D (continuity eq. 2.1 cm2 LVOT PGmean 2 mmHg VTI) LVOT Vmean 0.74 m/s MV A Vmax 0.59 m/s LVOTd 2 cm (1.8cm - 2cm) MV DT 278 ms LVPWd, 2D 0.9 cm MV E' lateral 0.07 m/s RVDd, 2D 3.1 cm (1.9cm - 3.8cm) MV E' mean 0.06 m/s LADs, 2D 3.6 cm (2.7cm - 3.8cm) MV E' septal 0.06 m/s LAESV index, BP 41.2 ml/m2 MV E Vmax 0.51 m/s RA Area 15.5 cm2 MV E/A 0.86 Additional Vessels MV E/E' lateral 7.7 Label Value Normal Value MV E/E' mean 7.85 AoAsc 3.3 cm MV E/E' septal 8.3 (0.45 - 1.25) AoRoot, 2D 3.4 cm (1.4cm - 2.6cm) MV PHT 0.09 s Patient: BLAKE MIN Study Date: 07/27/2018 Page 1 of 3 07:39 AM MV PHT 90 ms MVA PHT 2.4 cm2 TV/PV Label Value Normal Value RA Pressure 5 mmHg RVSP 29 mmHg TR Pmax 24 mmHg TR Vmax 2.44 m/s PV PGmax 2 mmHg PV Vmax, Caliper 0.75 m/s (0.6m/s - 0.9m/s) Conclusions Left Ventricle: EF range is estimated at 60 % - 65 %. Aortic Valve: Moderate aortic regurgitation is present. Tricuspid Valve: Mild tricuspid regurgitation. Right Ventricular systolic pressure is measured at 29 mmHg. Findings Left Ventricle: Left ventricle is normal in size. Normal global systolic left ventricular function. The ejection fraction, measured by Simpsons method, is 65 %. EF range is estimated at 60 % - 65 %. Left ventricle wall thickness is normal. There are no regional wall motion abnormalities. Cannot determine LAP and Diastolic Dysfunction Grade. Right Ventricle: Normal size right ventricle. Right ventricular systolic function is normal. Left Atrium: The left atrium is mildly dilated. Mitral Valve: Mitral valve appears structurally normal. Mild mitral regurgitation. No mitral valve stenosis. Aortic Valve: Aortic leaflets are structurally normal. Moderate aortic regurgitation is present. There is no aortic stenosis. Tricuspid Valve: Tricuspid valve leaflets are structurally normal. Mild tricuspid regurgitation. Right Ventricular systolic pressure is measured at 29 mmHg. Pulmonary artery pressure normal. Aorta: The aortic root size in 2D measures 3.4 cm. The ascending aorta measures 3.3 cm. Aorta Measurements AoRoot, 2D is 3.4 cm. Exam Details Procedure Ordered: Echo Procedure Status: Routine study Image Quality: Adequate Facility Location: Cardiac Echo 1 Patient: BLAKE MIN Study Date: 07/27/2018 Page 2 of 3 07:39 AM (No Signature Object) Patient: BLAKE IMN Study Date: 07/27/2018 Page 3 of 3 07:39 AM [id number]
== END 2018-07-27 11:30 | disposition home or self-care (01) ==
LOC: FCATH 06:50 → F2N 11:13
PROVIDERS: ADMIT Internal Medicine Cardiovascular Disease; ATTEND Internal Medicine Cardiovascular Disease
DX: I48.0 Paroxysmal atrial fibrillation (principal); Z79.01 Long term (current) use of anticoagulants; E78.00 Pure hypercholesterolemia, unspecified
CPT/HCPCS: 93005; 93306; 93312; 93613; 93656; 93662; C1730; C1731; C1732; C1733; C1759; C1766; C1893; J1100; J1644; J1885; J2370; J2405; J2704; J2720; Q9967; J3010

== ENCOUNTER → 2018-08-25 | Outpatient (CLI) | payer OTHER | LOC: BHFA 14:30 | PROVIDERS: ATTEND Internal Medicine Cardiovascular Disease | DX: I48.91 Unspecified atrial fibrillation (principal) ==